=== PATIENT | female | born 1980 | race Caucasian/White ===

== ENCOUNTER 2020-03-25 15:40 | Emergency (ER) | payer MEDICAID ==
[~2020-03-25] VITALS: Ht 157.5 cm; Wt 71.7 kg
[2020-03-25 16:02] VITALS: Ht 157.5 cm; Wt 71.7 kg
[2020-03-25 18:18] VITALS: BP 127/71
== END 2020-03-25 18:18 | disposition home or self-care (01) ==
LOC: ED 15:40
DX: J03.90 Acute tonsillitis, unspecified (principal); K11.20 Sialoadenitis, unspecified